=== PATIENT | male | born 1990 | race Caucasian/White ===

== ENCOUNTER 2020-07-04 15:30 | Emergency (ER) | payer OTHER, SELFPAY ==
[2020-07-04 15:49] VITALS: BP 142/100; PULSE 87; RESP 16; TEMP 37.2; O2SAT 98
--- NOTE | 2020-07-04 16:19 | ED.URI ---
HPI - URI/Sore Throat General Chief Complaint: Upper Respiratory Infection Stated Complaint: sore throat Source: patient and RN notes reviewed Limitations: no limitations History of Present Illness HPI Narrative: The patient, a non-smoker/rare drinker, presents with sore throat. Patient states he has a shorter 1 day history of posterior throat pain, similar to prior episodes of strep-associated with white spots last night. No fever, hoarseness, trismus, dysphagia, shortness of breath, wheezing/sneezing, loss of taste/smell. Symptoms are mild, worse with swallowing Related Data Allergies Allergy/AdvReac Type Severity Reaction Status Date / Time No Known Allergies Allergy Verified 07/04/20 15:39 Review of Systems Review of Systems: Narrative: The patient has been informed that they may have pre-hypertension or Hypertension based on a BP reading in the department. I recommend that the patient call the primary care provider listed on their discharge instructions or a physician of their choice this week to arrange follow up for further evaluation of possible pre-hypertension or Hypertension General/Constitutional: No weight loss,fever Eyes: N0: Redness,discharge Ears/Nose/Throat: No: Epistaxis,ear discharge Respiratory: Denies: Hemoptysis Gastrointestinal: No Vomiting, Bleeding-rectal Skin: No Lumps, eruption Neurologic: No Focal Weakness,Sz Hematologic: Denies: Petechiae/Purpura Psychiatric: No: Suicida ideationl All Other Systems: Reviewed and Negative PMFSH Family History Family History (Updated 10/17/16 @ 15:42 by DOCTOR UNKNOWN) Mother Family history of irritable bowel syndrome Other Diabetes mellitus Family history of arthritis Family history of atrial fibrillation Family history of congestive heart failure Social History Social History Smoking status: Never smoker Alcohol intake: current Comments At time of signature, agree with nursing past medical, surgical, social and family history. There is no relevant family history pertinent to the presenting complaint Exam Narrative: Exam Narrative: General Appearance: Well appearing, Well nourished EYE: PERRLA, Conjunctiva clear Ears: Auditory canal normal, TM normal Nose: Rhinorrhea, Mucousal erythema Mouth/Throat: MM moist, Uvula midline and slightly inflamed/ hydrops, Pharyngeal erythema Neck: Supple, No adenopathy Respiratory: No respiratory distress, Cardiovascular: RRR, No JVD Musculoskeletal: Non tender, Normal strength Skin: Warm, Dry Neurological: A&O x3, CN II-XII intact Psychiatric: Normal mood, Normal affect Course Vital Signs Vital signs: Vital Signs Temperature 99.0 F 07/04/20 15:49 Pulse Rate 87 07/04/20 15:49 Respiratory Rate 16 07/04/20 15:49 Blood Pressure 142/100 H 07/04/20 15:49 Pulse Oximetry 98 07/04/20 15:49 Temperature 99.0 F 07/04/20 15:49 Pulse Rate 87 07/04/20 15:49 Respiratory Rate 16 07/04/20 15:49 Blood Pressure 142/100 H 07/04/20 15:49 Pulse Oximetry 98 07/04/20 15:49 MDM - URI/Sore Throat Lab Data Labs: Strep Screen Presumptive Negative *(Reference Range: Negative)* Discharge Plan Discharge Clinical Impression: Uvulitis Patient Disposition: Home, Self-Care Condition: Stable Instructions: Antibiotic Form, Uvulitis (ED) Prescriptions: New amoxicillin-pot clavulanate [Augmentin] 500-125 mg tablet 1 tablet PO Q12H Qty: 20 RF: 0 Lidocaine Viscous 2 % solution 5 ml MUCOUS MEM QID PRN (Reason: pain) Qty: 100 RF: 0 prednisone 20 mg tablet 60 mg PO DAILY Qty: 9 RF: 0 Follow-up/Referrals: UNKNOWN,DOCTOR [Primary Care Provider] -
== END 2020-07-04 16:25 | disposition home or self-care (01) ==
PROVIDERS: Emergency Provider Emergency Medicine
DX: K12.2 Cellulitis and abscess of mouth (principal)
CPT/HCPCS: 87081; 87880; 99203; G0463